=== PATIENT | female | born 1970 ===

== ENCOUNTER 2022-04-23 12:29 | Emergency (ER) | payer OTHER ==
[~2022-04-23] VITALS: Ht 165.1 cm; Wt 105.2 kg
[2022-04-23] MEDS ORDERED: GLUMETZA500 MG (13:07)
[2022-04-23] MEDS ORDERED: AVALIDE 300-121 EACH (13:07)
[2022-04-23] MEDS ORDERED: PRISTIQ ER100 MG (13:08)
[2022-04-23] MEDS ORDERED: SEROQUEL25 MG (13:08)
== END 2022-04-23 15:57 ==
LOC: ER 12:29
DX: H60.91 Unspecified otitis externa, right ear (principal); H92.01 Otalgia, right ear; Z91.013 Allergy to seafood; Z88.8 Allergy status to other drugs, medicaments and biological substances